=== PATIENT | male | born 1930 | race Caucasian/White ===

== ENCOUNTER → 2017-01-04 | Outpatient (CLI) | payer OTHER, MEDICARE ==
[~2017-01-04] MED LIST: CHOL20009 PO; CYAN500T PO; GLIM4TAB PO; INSDGI SC; LEVO100T PO; LISI20TA3 PO; MAGN1CAP4 PO; MAGN400T6 PO; MAGNESIUM 500 MG; METO25TA56 PO; MOME50SP5; NVLG SC; NVLG SQ; OXYC-106 PO; PRAV20TA PO; RIVA1.5T PO; TAMS0.4C38 PO; TAMS0.4C59 PO; lantus SC; vitamin b12 PO; vitamin d PO
[2017-01-04 13:37] LABS: HEMATOCRIT 40.9 % (42-52); MEAN CELL VOLUME 97.4 fL (80-100); MEAN CORPUSCULAR HEMOGLOBIN 32.1 pg (25-34); MEAN PLATELET VOLUME 11.6 fL (7.4-10.4); PLATELET COUNT 230 K/uL (130-400); WHITE BLOOD COUNT 7.39 K/uL (4.8-10.8)
[2017-01-04 13:54] LABS: URINE APPEARANCE CLEAR (CLEAR); URINE BILIRUBIN NEG (NEG); URINE COLOR YELLOW; URINE EPITHELIAL CELL AUTO >30 /lpf (0-5); URINE NITRITE NEG (NEG); URINE PH 6.5 (4.5-7.5); URINE SPECIFIC GRAVITY 1.017 (1.000-1.030); UROBILINOGEN NEG (NEG)
[2017-01-04 13:55] LABS: MANUAL MICROSCOPIC REQUIRED? NO; REVIEW REQ? NO
[2017-01-04 14:04] LABS: BLOOD UREA NITROGEN 26 mg/dl (7-18); BUN/CREATININE RATIO 15.2 (10-20); CARBON DIOXIDE 28 mmol/L (21-32); CHLORIDE 106 mmol/L (98-107); GLUCOSE 82 mg/dl (70-99); PHOSPHORUS 3.4 mg/dl (2.5-4.9); POTASSIUM 5.4 mmol/L (3.5-5.1); SODIUM 140 mmol/L (136-145)
[2017-01-04 14:26] LABS: URINE PROTIEN/CREAT RATIO 0.2 (0-0.2); URINE TOTAL PROTEIN 18.4 mg/dl (0-11.9)
[2017-01-04 15:01] LABS: CALCIUM 8.9 mg/dl (8.5-10.1)
== END | disposition home or self-care (01) ==
LOC: C.LABBC 09:33
PROVIDERS: ATTEND Internal Medicine Nephrology
DX: I12.9 Hypertensive chronic kidney disease with stage 1 through stage 4 chronic kidney disease, or unspecified chronic kidney disease (principal); E11.22 Type 2 diabetes mellitus with diabetic chronic kidney disease; N18.3 Chronic kidney disease, stage 3 (moderate); D64.9 Anemia, unspecified; D47.2 Monoclonal gammopathy

== ENCOUNTER → 2017-02-14 | Outpatient (CLI) | payer OTHER, BC ==
[2017-02-22 16:01] LABS: CRYPTOSPORIDIUM AG TC 37213 NOT DETECTED (NOT DETECTED); ISOSPORA+CYCLOSPORA NOT DETECTED (NOT DETECTED); O&P GIARDIA AG NOT DETECTED (NOT DETECTED); O&P SOURCE OTHER-STOOL
== END | disposition home or self-care (01) ==
LOC: C.LABSPEC 15:28
PROVIDERS: ATTEND Registered Nurse
DX: R19.7 Diarrhea, unspecified (principal)

== ENCOUNTER → 2017-03-14 | Outpatient (CLI) | payer OTHER, BC ==
[2017-03-14 11:36] LABS: BASO % 0.3 %; BASO ABS # 0.02 K/uL (0-0.2); COMPLETE YES; EOS % 3.3 %; HEMATOCRIT 41.2 % (42-52); IG% 0.3 %; LYMPH % 20.5 %; LYMPH ABS # 1.43 K/uL (1.2-3.4); MEAN CELL VOLUME 95.8 fL (80-100); MEAN CORPUSCULAR HEMOGLOBIN 32.1 pg (25-34); MEAN CORPUSCULAR HGB CONC 33.5 g/dl (32-36); MEAN PLATELET VOLUME 11.4 fL (7.4-10.4); MONO % 10.3 %; NEUT % 65.3 %; PLATELET COUNT 215 K/uL (130-400); WHITE BLOOD COUNT 6.96 K/uL (4.8-10.8)
[2017-03-14 11:59] LABS: ALT/SGPT 27 U/L (12-78); AST/SGOT 16 U/L (15-37); BLOOD UREA NITROGEN 27 mg/dl (7-18); BUN/CREATININE RATIO 16.2 (10-20); CALCIUM 8.9 mg/dl (8.5-10.1); CARBON DIOXIDE 27 mmol/L (21-32); CHLORIDE 108 mmol/L (98-107); GLUCOSE 81 mg/dl (70-99); POTASSIUM 4.7 mmol/L (3.5-5.1); SODIUM 140 mmol/L (136-145)
[2017-03-14 12:10] LABS: ALB/GLOB RATIO 0.9 (0.9-2); ALKALINE PHOSPHATASE 61 U/L (45-117); CHOLESTEROL 145 mg/dl (0-200); CHOLESTEROL/HDL RATIO 3.3; HDL CHOLESTEROL 44 mg/dl; LDL CHOLESTEROL CALCULATED 83 mg/dl; TRIGLYCERIDES 91 mg/dl (0-150); VERY LOW DENSITY LIPOPROT CALC 18 mg/dl
[2017-03-14 12:11] LABS: ESTIMATED AVERAGE GLUCOSE 137 mg/dl; HA1C FLAG Normal (Normal)
== END | disposition home or self-care (01) ==
LOC: C.LABBC 08:42
PROVIDERS: ATTEND Internal Medicine
DX: E11.9 Type 2 diabetes mellitus without complications (principal); I48.0 Paroxysmal atrial fibrillation

== ENCOUNTER → 2017-04-30 | Outpatient (CLI) | payer OTHER, BC ==
--- NOTE | 2017-04-30 12:26 | DIAGNOSTIC IMAGING REPORT ---
ABDOMEN 2VIEW W/PA CHEST RTN HISTORY: 87 years-old Male Diarrhea, Bloating acute diarrhea x 5 months. Abdominal bloating. COMPARISON: Chest radiographs 05/05/2015 TECHNIQUE: Frontal view of the chest with supine and erect views of the abdomen FINDINGS: Cardiac silhouette is mildly enlarged. There is atherosclerosis and tortuosity of the thoracic aorta which appears unchanged from comparison. Pulmonary vascular congestion is noted without overt pulmonary edema. Chronic blunting of the bilateral phosphoric angles suggests sequela of parenchymal scarring. No pneumothorax, pleural effusion or focal airspace consolidation. No pneumoperitoneum identified on the upright projection. There are several air-fluid levels noted within bowel of the right abdomen which appears to be within colon. The bowel gas pattern is nonobstructive. No definite renal calculi or organomegaly. Multilevel severe degenerative changes of the lumbar spine are noted with convex left curvature of the lower lumbar spine. 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 Basilar calcifications noted. IMPRESSION: 1. Multiple air-fluid levels within bowel of the right mid abdomen appear to be within colon suggesting diarrheal state and/or enteritis. No evidence of bowel obstruction or pneumoperitoneum. 2. Cardiomegaly without overt pulmonary edema. The above report was generated using voice recognition software. It may contain grammatical, syntax or spelling errors. Electronically signed by: Jimy Montalvo M.D. 04/30/2017 12:24 PM Dictated Date/Time: 04/30/2017 12:21 PM
== END | disposition home or self-care (01) ==
LOC: C.LABBC 11:43
PROVIDERS: ATTEND Registered Nurse
DX: R14.0 Abdominal distension (gaseous) (principal); R19.7 Diarrhea, unspecified

== ENCOUNTER → 2017-05-11 | Outpatient (CLI) | payer OTHER, BC ==
[~2017-05-11] MED LIST changes: -GLIM4TAB PO; -MAGN400T6 PO; -MAGNESIUM 500 MG; -MOME50SP5; -NVLG SQ; -OXYC-106 PO; -TAMS0.4C59 PO; -lantus SC; -vitamin b12 PO; -vitamin d PO
[2017-05-11 13:37] LABS: HEMATOCRIT 39.8 % (42-52); MEAN CELL VOLUME 94.5 fL (80-100); MEAN CORPUSCULAR HEMOGLOBIN 31.1 pg (25-34); MEAN CORPUSCULAR HGB CONC 32.9 g/dl (32-36); MEAN PLATELET VOLUME 11.5 fL (7.4-10.4); PLATELET COUNT 243 K/uL (130-400); RED BLOOD COUNT 4.21 M/uL (4.7-6.1); WHITE BLOOD COUNT 8.07 K/uL (4.8-10.8)
[2017-05-11 13:48] LABS: URINE APPEARANCE CLEAR (CLEAR); URINE BILIRUBIN NEG (NEG); URINE COLOR YELLOW; URINE NITRITE NEG (NEG); URINE SPECIFIC GRAVITY 1.021 (1.000-1.030); UROBILINOGEN NEG (NEG)
[2017-05-11 13:50] LABS: MANUAL MICROSCOPIC REQUIRED? NO; REVIEW REQ? NO
[2017-05-11 14:06] LABS: URINE PROTIEN/CREAT RATIO 0.3 (0-0.2); URINE TOTAL PROTEIN 43.6 mg/dl (0-11.9)
[2017-05-11 14:12] LABS: ALT/SGPT 23 U/L (12-78); BLOOD UREA NITROGEN 29 mg/dl (7-18); BUN/CREATININE RATIO 16.9 (10-20); CALCIUM 9.1 mg/dl (8.5-10.1); CARBON DIOXIDE 23 mmol/L (21-32); CHLORIDE 112 mmol/L (98-107); GLUCOSE 120 mg/dl (70-99); POTASSIUM 4.8 mmol/L (3.5-5.1); SODIUM 141 mmol/L (136-145)
[2017-05-11 14:15] LABS: ALB/GLOB RATIO 0.8 (0.9-2); ALKALINE PHOSPHATASE 74 U/L (45-117); AST/SGOT 17 U/L (15-37)
== END | disposition home or self-care (01) ==
LOC: C.LABBC 11:44
PROVIDERS: ATTEND Internal Medicine Nephrology
DX: I12.9 Hypertensive chronic kidney disease with stage 1 through stage 4 chronic kidney disease, or unspecified chronic kidney disease (principal); N20.0 Calculus of kidney; D64.9 Anemia, unspecified; N18.3 Chronic kidney disease, stage 3 (moderate); D47.2 Monoclonal gammopathy

== ENCOUNTER → 2017-05-18 | Day surgery (SDC) | payer OTHER, BC ==
[2017-05-07 13:47] VITALS: Ht 180.3 cm; Wt 109.1 kg
[~2017-05-18] VITALS: Ht 180.3 cm; Wt 109.1 kg
[~2017-05-18] MED LIST changes: +LIDOCAINE HCL 2% 2 ML VIAL (20MG/ML) ONE; +PROPOFOL IV EMULSION 10 MG/ML 20 ML VIAL IV ONE; +SODIUM CHLORIDE 0.9% 500ML 500 ML IV ONE
--- NOTE | 2017-05-18 11:52 | Endo History and Physical ---
History & Physical Date of Service: May 18, 2017. Chief Complaint: Abnormal GI imaging Referring Physician: Alpesh Strauss History of Present Illness 87 yo CM who presents for colonoscopy secondary to abnormal GI imaging. Past Medical History Atrial Fibrillation, Diabetes, Arthritis, Cancer, High Cholesterol, Hypertension , Thyroid Disease, Kidney Disease Past Surgical History Hx Cardiac Surgery: No Hx Internal Defibrillator: No Hx Pacemaker: No Hx Abdominal Surgery: No Hx of Implantable Prosthesis: No Hx Post-Op Nausea and Vomiting: No Hx Cancer Surgery: No Hx Thoracic Surgery: No Hx Orthopedic: Yes (LT TKA, RT ANALIA, LOWER BACK SURGERY X2) Hx Urinary Tract Surgery: No Family History None Social History Smoking Status: Never Smoker Hx Substance Use: No Hx Alcohol Use: Yes (OCCASIONAL) Allergies Coded Allergies: No Known Allergies (Verified , 05/18/17) Current Medications Reported Home Medications Medications Dose Route/Sig Max Daily Dose Days Date Category Magnesium (Magnesium Oxide) 500 Mg Cap 1 Cap PO QPM 05/07/17 Reported Vitamin D (Cholecalciferol) 2,000 Unit Tab 1 Tab PO QAM 05/07/17 Reported Vitamin B-12 (Cyanocobalamin) 500 Mcg Tab 500 Mcg PO QAM 05/07/17 Reported Novolog (Insulin Aspart) 100 Units/Ml Inj 6 Units SC TID 05/07/17 Reported Lantus (Insulin Glargine) 100 Unit/Ml Inj 15 Units SC QPM 05/07/17 Reported Flomax (Tamsulosin Hcl) 0.4 Mg Cap 0.4 Mg PO QPM 05/07/17 Reported Prinivil (Lisinopril) 20 Mg Tab 20 Mg PO BID 05/07/17 Reported Xarelto (Rivaroxaban) 15 Mg Tab 15 Mg PO QPM 03/18/15 Reported Lopressor (Metoprolol Tartrate) 25 Mg Tab 25 Mg PO BID 02/25/15 Reported Synthroid (Levothyroxine Sodium) 100 Mcg Tab 100 Mcg PO QAM 02/25/15 Reported Pravachol (Pravastatin Sodium) 20 Mg Tab 20 Mg PO HS 03/27/12 Reported Vital Signs Weight (Kilograms): 109.09 Height (Feet): 5 Height (Inches): 11 Physical Exam General Appearance: WD/WN, no apparent distress Respiratory/Chest: Auscultation: breath sounds normal Cardiovascular: Heart Auscultation: RRR Abdomen: Bowel Sounds: normal Inspection & Palpation: soft, non-distended, no tenderness, guarding & rebound Assessment and Plan Assessment: 87 yo CM who presents for colonoscopy secondary to abnormal GI imaging. Plan: Proceed with colonoscopy.
--- NOTE | 2017-05-18 12:54 | GI REPORT ---
Procedure Date: 05/18/2017 12:17 PM Procedure: Colonoscopy Indications: Abnormal abdominal x-ray of the GI tract Medicines: Monitored Anesthesia Care Complications: No immediate complications. Estimated Blood Loss: Estimated blood loss: none. Procedure: Pre-Anesthesia Assessment: - Prior to the procedure, a History and Physical was performed, and patient medications and allergies were reviewed. The patient's tolerance of previous anesthesia was also reviewed. The risks and benefits of the procedure and the sedation options and risks were discussed with the patient. All questions were answered, and informed consent was obtained. Prior Anticoagulants: The patient has taken Xarelto (rivaroxaban), last dose was 4 days prior to procedure. ASA Grade Assessment: III - A patient with severe systemic disease. After reviewing the risks and benefits, the patient was deemed in satisfactory condition to undergo the procedure. After I obtained informed consent, the scope was passed under direct vision. Throughout the procedure, the patient's blood pressure, pulse, and oxygen saturations were monitored continuously. The scope was introduced through the anus and advanced to the terminal ileum. The colonoscopy was performed without difficulty. The patient tolerated the procedure well. The quality of the bowel preparation was good. The terminal ileum, ileocecal valve, appendiceal orifice, and rectum were photographed. Findings: Multiple small-mouthed diverticula were found in the sigmoid colon. Non-bleeding internal hemorrhoids were found during retroflexion. The hemorrhoids were small. Several random biopsies were obtained with cold forceps for histology in the entire colon. Fluid aspiration for cytology was performed in the entire colon. Impression: - Diverticulosis in the sigmoid colon. - Non-bleeding internal hemorrhoids. - Several random biopsies were obtained in the entire colon. - Fluid aspiration was performed. Recommendation: - Resume previous diet. - Continue present medications. - No repeat colonoscopy due to age and the absence of advanced adenomas. - Return to primary care physician as previously scheduled. Jose Whiting DO 05/18/2017 12:53:58 PM This report has been signed electronically. Note Initiated On: 05/18/2017 12:17 PM I attest to the content of the Intraoperative Record and orders documented therein, exceptions below
--- NOTE | 2017-05-18 12:56 | Discharge Instructions ---
Endoscopy Patient Instructions Date / Procedure(s) Performed May 18, 2017. Colonoscopy Allergy Information Coded Allergies: No Known Allergies (Verified , 05/18/17) Discharge Date / Findings May 18, 2017. Diverticulosis Internal hemorrhoids Random colon biopsies Stool aspirate collected Medication Instructions Stopped Medication(s): last dose Xarelto Sunday OK to resume all medications today as prescribed Reported Home Medications Medications Dose Route/Sig Max Daily Dose Days Date Category Magnesium (Magnesium Oxide) 500 Mg Cap 1 Cap PO QPM 05/07/17 Reported Vitamin D (Cholecalciferol) 2,000 Unit Tab 1 Tab PO QAM 05/07/17 Reported Vitamin B-12 (Cyanocobalamin) 500 Mcg Tab 500 Mcg PO QAM 05/07/17 Reported Novolog (Insulin Aspart) 100 Units/Ml Inj 6 Units SC TID 05/07/17 Reported Lantus (Insulin Glargine) 100 Unit/Ml Inj 15 Units SC QPM 05/07/17 Reported Flomax (Tamsulosin Hcl) 0.4 Mg Cap 0.4 Mg PO QPM 05/07/17 Reported Prinivil (Lisinopril) 20 Mg Tab 20 Mg PO BID 05/07/17 Reported Xarelto (Rivaroxaban) 15 Mg Tab 15 Mg PO QPM 03/18/15 Reported Lopressor (Metoprolol Tartrate) 25 Mg Tab 25 Mg PO BID 02/25/15 Reported Synthroid (Levothyroxine Sodium) 100 Mcg Tab 100 Mcg PO QAM 02/25/15 Reported Pravachol (Pravastatin Sodium) 20 Mg Tab 20 Mg PO HS 03/27/12 Reported Provider Instructions Activity Restrictions - No exercising or heavy lifting for 24 hours. - Do not drink alcohol the day of the procedure. - Do not drive a car or operate machinery until the day after the procedure. - Do not make any important decisions or sign important papers in 24 hours after the procedure. Following Day: - Return to full activity which may include returning to work/school. Diet Start your diet with liquids and light foods (jello, soup, juice, toast). Then eat your usual diet if not nauseated. Treatment For Common After Affects For mild abdominal pain, bloating, or excessive gas: - Rest - Eat lightly - Lie on right side Follow-Up Information Follow-up with Dr. Alpesh Strauss as scheduled Anesthesia Information What You Should Know You have had a procedure that required some medicine to reduce anxiety and discomfort. This treatment is called moderate sedation. After receiving the treatment, you may be sleepy, but you will be able to breathe on your own. The effects of the treatment may last for several hours. Follow these instructions along with Activity/Diet recommendations noted above: * Do NOT do anything where dizziness or clumsiness would be dangerous. * Rest quietly at home today, then you can be up and about tomorrow. * Have a responsible person stay with you the rest of today. * You may have had an I.V. today. If so, you may take the dressing off later today. Recommendations Call your doctor if: * Trouble breathing * Continuous vomiting for more than 24 hours * Temperature above 101 degrees * Severe abdominal pain or bloating * Pain not relieved by pain medicine ordered * There is increased drainage or redness from any incision * A large amount of rectal bleeding greater than 2-3 tablespoons. (If you had a polyp/s removed or have hemorrhoids, a small amount of blood - from the rectum is to be expected.) * You have any unanswered questions or concerns. IN THE EVENT OF A SERIOUS EMERGENCY, GO TO THE NEAREST EMERGENCY ROOM Your discharge instructions were prepared by provider Jose Whiting. Patient Instructions Signature Page Harjinder Blanc Patient (or Guardian) Signature/Date: I have read and understand the instructions given to me by my caregivers. Caregiver/RN/Doctor Signature/Date: The above-named patient and/or guardian has received patient instructions on this date. + Original Patient Signature Page (only) stays with chart. Please make copy for patient.
--- NOTE | 2017-05-18 13:03 | Anesthesiology Progress Note ---
Anesthesia Post Op Note Date & Time May 18, 2017 at 13:03 Vital Signs Pain Intensity: 0 Vital Signs Past 12 Hours Date Time Temp Pulse Resp B/P (MAP) Pulse Ox O2 Delivery O2 Flow Rate FiO2 05/18/17 11:54 36.9 64 20 137/81 (99) 99 Room Air Notes Mental Status: alert / awake / arousable, participated in evaluation Pt Amnestic to Procedure: Yes Nausea / Vomiting: adequately controlled Pain: adequately controlled Airway Patency, RR, SpO2: stable & adequate BP & HR: stable & adequate Hydration State: stable & adequate Anesthetic Complications: no major complications apparent
[2017-05-18 13:25] VITALS: BP 130/79; PULSE 53; O2SAT 95
== END | disposition home or self-care (01) ==
LOC: C.GI 11:14
PROVIDERS: ATTEND Internal Medicine
DX: R93.3 Abnormal findings on diagnostic imaging of other parts of digestive tract (principal); K57.30 Diverticulosis of large intestine without perforation or abscess without bleeding; K64.8 Other hemorrhoids; I48.91 Unspecified atrial fibrillation; E11.9 Type 2 diabetes mellitus without complications; M19.90 Unspecified osteoarthritis, unspecified site; E78.00 Pure hypercholesterolemia, unspecified; Z96.652 Presence of left artificial knee joint; Z96.641 Presence of right artificial hip joint; Z79.4 Long term (current) use of insulin; E78.5 Hyperlipidemia, unspecified; I71.4 Abdominal aortic aneurysm, without rupture; N18.3 Chronic kidney disease, stage 3 (moderate); I12.9 Hypertensive chronic kidney disease with stage 1 through stage 4 chronic kidney disease, or unspecified chronic kidney disease; N40.0 Benign prostatic hyperplasia without lower urinary tract symptoms